=== PATIENT | female | born 1970 | race Caucasian/White ===

== ENCOUNTER 2018-08-23 13:04 | Outpatient (CLI) | payer SELFPAY ==
--- NOTE | 2018-08-24 13:37 | Diagnostic Imaging Report ---
BRADLEY MERCHANT (TECHNICAL COMMUNICATOR) - ER [facility] [address] [id number] Report Submission Date: Aug 23, 2018 1:41:49 PM CDT Patient Study Name: IAN REECE Date: Aug 23, 2018 1:24:54 PM CDT Modality Type: DX Gender: F Description: : 68 Institution: [facility] Physician: BRADLEY MERCHANT (JEANNETTE) - ER Examination: Plain film left foot History: PT DROPPED A LEAF BLOWER ON FOOT 1 WEEK AGO SWOLLEN PAINFUL AND DIFFICULT TO WALK ON. Findings: 3 views of the left foot demonstrates normal cortical margins. No fracture or dislocation. Calcaneal spurs. No soft tissue swelling. No joint effusion. Impression: No acute osseous process. Electronically signed on Aug 23, 2018 1:41:49 PM CDT by: Jered PARKER
== END 2018-08-23 13:06 ==
LOC: RAD 13:04
PROVIDERS: ATTEND Emergency Medicine
DX: S99.222A Salter-Harris Type II physeal fracture of phalanx of left toe, initial encounter for closed fracture (principal); X58.XXXA Exposure to other specified factors, initial encounter; Y99.8 Other external cause status
CPT/HCPCS: 73630